=== PATIENT | male | born 1970 | race African-American/Black ===

== ENCOUNTER 2020-11-15 23:20 | Emergency (ER) | payer MEDICARE ==
[~2020-11-15] VITALS: Ht 172.7 cm; Wt 90.7 kg
[2020-11-15] MEDS ORDERED: PRINIVIL20 M1 PO (23:40)
[2020-11-15] MEDS ORDERED: METFORMIN HCL500 M3 PO (23:40)
[2020-11-16 00:18] LABS: ABSOLUTE BASOPHILS 0.1 thou/uL (0.0-0.2); ABSOLUTE EOSINOPHILS 0.4 thou/uL (0.0-0.7); ABSOLUTE LYMPHOCYTES 3.9 thou/uL (0.8-5.3); ABSOLUTE MONOCYTES 0.6 thou/uL (0.0-1.2); ABSOLUTE NEUTROPHILS 3.7 thou/uL (1.6-8.1); BASOPHILS 0.9 %; EOSINOPHILS 4.1 %; HEMOGLOBIN 14.2 gm/dL (14.0-18.0); LYMPHOCYTES 44.9 %; MCHC 33.9 g/dL (28.0-37.0); MCV 91.4 fL (80.0-100.0); MPV 7.5 fl. (7.2-11.1); NUCLEATED RBCS 0 /100WBC; PLATELET COUNT* 311 thou/uL (150-400); POLYS 43.1 %; RDW-CV 14.4 % (10.5-14.5); WBC 8.6 thou/uL (4.0-11.0)
[2020-11-16 00:32] LABS: CALCIUM 8.4 mg/dL (8.5-10.1); CREATININE 1.1 mg/dL (0.6-1.3); POTASSIUM 3.5 mmol/L (3.5-5.1)
[2020-11-16 00:35] LABS: INR 0.9; PROTIME 9.9 Seconds (9.20-11.50)
[2020-11-16 00:36] LABS: ALBUMIN 3.1 g/dL (3.4-5.0); MAGNESIUM 1.8 mg/dL (1.8-2.4); TOTAL BILIRUBIN 0.5 mg/dL (<0.1-1.0); TOTAL PROTEIN 6.8 g/dL (6.4-8.2)
[2020-11-16 02:16] LABS: URINE BILIRUBIN NEGATIVE (Negative); URINE BLOOD NEGATIVE (Negative); URINE CLARITY CLEAR; URINE COLOR YELLOW; URINE GLUCOSE-RANDOM 1+ (Negative); URINE KETONES NEGATIVE (Negative); URINE LEUKOCYTES-REFLEX NEGATIVE (Negative); URINE NITRITE-REFLEX NEGATIVE (Negative); URINE PROTEIN NEGATIVE (Negative); URINE SPECIFIC GRAVITY 1.015 (1.005-1.030)
[2020-11-16 02:22] LABS: AMP/METHAMP Negative (Negative); BARBITURATES Negative (Negative); BENZODIAZEPINES Negative (Negative); COCAINE POSITIVE (Negative); METHADONE Negative (Negative); OPIATES Negative (Negative); PCP Negative (Negative); THC Negative (Negative)
[2020-11-16 03:29] VITALS: BP 105/58
--- NOTE | 2020-11-18 15:15 | EKG ---
[place] [address] ELECTROCARDIOGRAM REPORT Name: LUAN URBAN Room: [facility]#: [id number] Admission: 11/15/20 Attend Phys: Discharge: 11/16/20 Date of : 70 Date of Service: 11/15/202326 Report #: [id number] THIS REPORT FOR: //name// [facility] ED Test Date: 2020-11-15 Test Time: 23:27:32 Pat Name: LUAN URBAN Department: Room: Gender: Manager Water: ADELE Sumner : 1970 Requested By: Maria Guadalupe Chin Order Number: [id number] MD: Chi Bruce Measurements Intervals [place] Rate: 93 P: 40 NM: 156 QRS: 32 QRSD: 90 T: -10 QT: 333 QTc: 415 Interpretive Statements Sinus rhythm Probable left atrial enlargement Probable left ventricular hypertrophy Anterior Q waves, possibly due to LVH Borderline T abnormalities, inferior leads No previous ECG available for comparison Electronically Signed On 11-18-2020 15:15:13 CDT by Chi Bruce [email or web address] <ELECTRONICALLY SIGNED> By: Chi Bruce MD, [facility] 11/18/20 1515 [id number] [id number] Chi Bruce MD, [facility] /EPI
== END 2020-11-16 03:34 | disposition home or self-care (01) ==
LOC: M.ERS 23:20
PROVIDERS: Emergency Medicine
DX: R07.89 Other chest pain (principal); F14.90 Cocaine use, unspecified, uncomplicated; I10 Essential (primary) hypertension; E11.9 Type 2 diabetes mellitus without complications; F17.210 Nicotine dependence, cigarettes, uncomplicated; Z88.8 Allergy status to other drugs, medicaments and biological substances; Z86.711 Personal history of pulmonary embolism; Z86.73 Personal history of transient ischemic attack (TIA), and cerebral infarction without residual deficits; Z79.899 Other long term (current) drug therapy